=== PATIENT | female | born 1975 | race Caucasian/White ===

== ENCOUNTER 2020-03-18 13:10 | Emergency (ER) | payer OTHER ==
[~2020-03-18] VITALS: Ht 157.5 cm; Wt 68.0 kg
[2020-03-18] MEDS ORDERED: VASOTEC10 MG PO (13:38)
== END 2020-03-18 19:46 | disposition home or self-care (01) ==
LOC: ER 13:10
DX: N93.8 Other specified abnormal uterine and vaginal bleeding (principal)